=== PATIENT | male | born 1950 | race Caucasian/White ===

== ENCOUNTER 2018-09-24 06:50 | Emergency (ER) | payer MEDICARE ==
[~2018-09-24] VITALS: Ht 177.8 cm; Wt 95.3 kg
[~2018-09-24 06:50] MED LIST: LISINOPRIL10 MG PO
== END 2018-09-24 07:28 | disposition left against medical advice (07) ==
LOC: ER 06:50
DX: J32.9 Chronic sinusitis, unspecified (principal)